=== PATIENT | male | born 1935 | race Caucasian/White ===

== ENCOUNTER 2016-09-30 12:07 | Inpatient (IN) | payer OTHER ==
[~2016-09-30] VITALS: Ht 180.3 cm; Wt 77.2 kg
[2016-09-30 12:54] LABS: Basophils # (auto) 0 uL; Basophils % (auto) 0.2 % (0.0-2.0); CONDITION Y; Eosinophils # (auto) 0.3 uL; Eosinophils % (auto) 3.9 % (0.0-7.0); Hematocrit 42.8 % (41.0-53.0); Hemoglobin 14.4 g/dL (13.5-17.5); Lymphocytes # (auto) 1.3 uL; Lymphocytes % (auto) 16.5 % (10.0-50.0); Mean Corpuscular Hgb Conc. 33.8 g/dL (32.0-36.0); Mean Corpuscular Volume 97.8 fL (80.0-100.0); Mean Platelet Volume 7.9 fL (7.4-10.4); Monocytes # (auto) 0.8 uL; Monocytes % (auto) 9.7 % (0.0-12.0); Neutrophils # (auto) 5.6 uL; Neutrophils % (auto) 69.7 % (37.0-80.0); Platelet Count (auto) 272 10^3/uL (140-450); Red Cell Distribution Width 14.6 % (11.6-16.0); White Blood Cell 8.1 10^3/uL (4.4-10.8)
[2016-09-30 13:06] LABS: Albumin 3.7 g/dL (3.4-5.0); BUN/Creatinine Ratio 25.4; Calcium 8.6 mg/dL (8.5-10.1); Potassium 4.4 mmol/L (3.5-5.1)
[2016-09-30] MEDS ORDERED: SODIUM CHLORIDE 0.9% 1,000 ML IV ONE (13:11)
[2016-09-30 13:23] LABS: Bilirubin, Total 0.8 mg/dL (0.2-1.0); Total Protein 7.3 g/dL (6.4-8.2)
[2016-09-30] MEDS ORDERED: NITROGLYCERIN 0.4 MG SL TAB SL PRN (14:00)
[2016-09-30] MEDS ORDERED: MORPHINE SULF INJ 2 MG/ML SYRINGE 1ML IV PRN ×2 (14:00)
[2016-09-30] MEDS ORDERED: HYDROcodone-ACET 5/325MG TAB PO PRN (14:00)
[2016-09-30] MEDS ORDERED: TEMAZEPAM 15 MG CAP PO PRN (14:00)
[2016-09-30] MEDS ORDERED: LORazepam 0.5 MG TAB PO PRN (14:00)
[2016-09-30] MEDS ORDERED: PROMETHAZINE HCL 25 MG/ML 1ML IV PRN (14:00)
[2016-09-30] MEDS ORDERED: LACTULOSE 20Gm/30ML SOLN PO PRN (14:00)
[2016-09-30] MEDS ORDERED: ACETAMINOPHEN 500 MG TAB PO PRN (14:00)
[2016-09-30] MEDS: SODIUM CHLORIDE 0.9% 1,000 ML IV SCH (15:05)
[2016-09-30] MEDS ORDERED: APIXABAN 2.5 MG TAB PO SCH (22:00)
[2016-09-30] MEDS ORDERED: ATORVASTATIN 20 MG TAB PO SCH (22:00)
[2016-09-30] MEDS: METOPROLOL TARTRATE 25 MG TAB PO SCH (22:17)
[2016-10-01] MEDS: SODIUM CHLORIDE 0.9% 1,000 ML IV SCH ×2 (02:33→14:58)
[2016-10-01] MEDS ORDERED: ASPirin 81 mg TAB PO SCH (10:00)
[2016-10-01] MEDS ORDERED: ADENOSINE 65 MG in GIVE UN-DILUTED 0 ML IV ONE (10:00)
[2016-10-01] MEDS ORDERED: PANTOPRAZOLE 40 MG TAB PO SCH (10:00)
[2016-10-01] MEDS ORDERED: ENOXAPARIN SOD 40 MG/0.4 ML SYRINGE SC SCH (10:00)
[2016-10-01] MEDS ORDERED: APIXABAN 5 MG TAB PO SCH (10:00)
[2016-10-01] MEDS ORDERED: APIXABAN 2.5 MG TAB PO SCH (10:00)
[2016-10-01] MEDS ORDERED: ALBUTEROL SULF 2.5 MG/0.5ML(0.5%) NEB SOLN ONE (10:18)
[2016-10-01] MEDS ORDERED: IPRATROPIUM BROM 0.5 MG/2.5ML INH SOL ONE (10:18)
[2016-10-01] MEDS ORDERED: HYDROCORTISONE SOD SUCC 100 MG/2ML INJ VIAL ONE (10:33)
[2016-10-01 12:46] VITALS: BP 155/92
[2016-10-01] MEDS: METOPROLOL TARTRATE 25 MG TAB PO SCH (14:57)
[2016-10-01 15:00] VITALS: BP 155/92
[2016-10-01 18:10] VITALS: BP 155/92
[2016-10-04 13:06] LABS: Temperature: 22.4 C (20.0-25.0)
== END 2016-10-01 20:15 | disposition home or self-care (01) | DRG 69 ==
LOC: ER 12:07 → TELE 12:08 → TELE-E-ADS 10-01 12:09 → TELE-CENTR 10-01 14:38
PROVIDERS: ADMIT Internal Medicine; ATTEND Internal Medicine Geriatric Medicine
DX: G45.9 Transient cerebral ischemic attack, unspecified (principal); J98.11 Atelectasis; G40.89 Other seizures; I48.91 Unspecified atrial fibrillation; F17.210 Nicotine dependence, cigarettes, uncomplicated; I27.2 Other secondary pulmonary hypertension; I35.8 Other nonrheumatic aortic valve disorders; I11.9 Hypertensive heart disease without heart failure; I70.0 Atherosclerosis of aorta; I49.3 Ventricular premature depolarization; J44.9 Chronic obstructive pulmonary disease, unspecified; Z79.01 Long term (current) use of anticoagulants; I25.2 Old myocardial infarction; Z79.899 Other long term (current) drug therapy; Z86.73 Personal history of transient ischemic attack (TIA), and cerebral infarction without residual deficits
CPT/HCPCS: 36415; 70450; 70551; 71010; 78452; 80053; 82550; 82607; 82746; 83735; 84443; 84484; 85025; 85652; 86141; 93005; 93017; 93306; 93886; 94640; 94761; 96360; 96361; J0153

== ENCOUNTER 2017-12-06 16:23 | Inpatient (IN) | payer OTHER ==
[~2017-12-06] VITALS: Ht 170.2 cm; Wt 67.0 kg
[2017-12-06 18:05] LABS: Basophils # (auto) 0 uL; Basophils % (auto) 0.1 % (0.0-2.0); Eosinophils # (auto) 0 uL; Hematocrit 25.1 % (41.0-53.0); Hemoglobin 8.5 g/dL (13.5-17.5); Lymphocytes # (auto) 0.3 uL; Lymphocytes % (auto) 1.6 % (10.0-50.0); Mean Corpuscular Hemoglobin 30.1 pg (28.0-32.0); Mean Corpuscular Hgb Conc. 33.9 g/dL (32.0-36.0); Mean Corpuscular Volume 88.5 fL (80.0-100.0); Monocytes # (auto) 1.3 uL; Monocytes % (auto) 6.1 % (0.0-12.0); Neutrophils # (auto) 20.2 uL; Neutrophils % (auto) 92.2 % (37.0-80.0); Platelet Count (auto) 345 10^3/uL (140-450); Red Blood Cells 2.83 10^6/uL (4.5-5.90)
[2017-12-06 18:28] LABS: Albumin 2.1 g/dL (3.4-5.0); Magnesium 1.8 mg/dL (1.6-2.6); Potassium 4.1 mmol/L (3.5-5.1)
[2017-12-06 18:31] LABS: BUN/Creatinine Ratio 27.5; Calcium 7.4 mg/dL (8.5-10.1)
[2017-12-06 18:35] LABS: Bilirubin, Total 0.7 mg/dL (0.2-1.0); Total Protein 5.8 g/dL (6.4-8.2)
[2017-12-06] MEDS ORDERED: DIGOXIN (250MCG/ML) 2 ML AMPULE IV ONE (19:15)
[2017-12-06] MEDS ORDERED: SODIUM CHLORIDE 0.9% 500 ML IV ONE (19:15)
[2017-12-06] MEDS ORDERED: cefTRIAXone 1GM/10ml IVPUSH 10 ML IV ONE (19:30)
[2017-12-06 20:07] LABS: INR 1.18 (0.9-1.15); Partial Thromboplastin Time 29.1 sec (23.78-33.04); Prothrombin Time 12.5 sec (9.27-12.13)
[2017-12-06] MEDS ORDERED: ALBUMIN 25% 100 ML IV ONE (23:45)
[2017-12-06] MEDS ORDERED: ONDANSETRON HCL 4 MG/2 ML VIAL IV PRN (23:45)
[2017-12-06] MEDS ORDERED: FUROSEMIDE 20 MG/2 ML VIAL IV ONE (23:45)
[2017-12-07] MEDS ORDERED: VANCOMYCIN PER PHARMACY 0 MG IV SCH
[2017-12-07] MEDS: ENOXAPARIN SOD 80 MG/0.8ML SYRINGE SC SCH ×2 (01:00→10:25)
[2017-12-07] MEDS ORDERED: VANCOMYCIN 1GM/250ML 250 ML IV ONE (01:30)
[2017-12-07 02:00] VITALS: BP 104/63
[2017-12-07 04:22] LABS: Urine Bacteria NONE SEEN /hpf (None Seen); Urine Blood 2+ /uL (Negative); Urine Mucus FEW (None Seen); Urine WBC 7 /hpf (0 - 3)
[2017-12-07 05:00] VITALS: BP 100/54
[2017-12-07] MEDS: PIPERACILLIN-TAZOB 3.375GM 100 ML IV SCH ×4 (06:00→18:00)
[2017-12-07 07:02] LABS: Basophils # (auto) 0 uL; Basophils % (auto) 0.2 % (0.0-2.0); Eosinophils # (auto) 0 uL; Eosinophils % (auto) 0.1 % (0.0-7.0); Hematocrit 24.8 % (41.0-53.0); Hemoglobin 8.5 g/dL (13.5-17.5); Lymphocytes # (auto) 0.5 uL; Lymphocytes % (auto) 2.1 % (10.0-50.0); Mean Corpuscular Hemoglobin 30.2 pg (28.0-32.0); Mean Corpuscular Hgb Conc. 34.2 g/dL (32.0-36.0); Mean Corpuscular Volume 88.2 fL (80.0-100.0); Monocytes # (auto) 1.1 uL; Neutrophils % (auto) 92.6 % (37.0-80.0); Platelet Count (auto) 320 10^3/uL (140-450); Red Blood Cells 2.81 10^6/uL (4.5-5.90); Red Cell Distribution Width 13.7 % (11.8-14.3); White Blood Cell 22.7 10^3/uL (4.4-10.8)
[2017-12-07 07:14] LABS: Albumin 2.1 g/dL (3.4-5.0); BUN/Creatinine Ratio 29.8; Calcium 7.3 mg/dL (8.5-10.1); Potassium 3.6 mmol/L (3.5-5.1)
[2017-12-07 07:19] LABS: Bilirubin, Total 0.7 mg/dL (0.2-1.0); Total Protein 5.5 g/dL (6.4-8.2)
[2017-12-07 09:00] VITALS: BP 108/63
[2017-12-07] MEDS ORDERED: ASPirin-EC 81 mg tab PO SCH (10:00)
[2017-12-07] MEDS ORDERED: METOPROLOL SUCCINATE XL 50 MG TAB PO SCH (10:00)
[2017-12-07] MEDS: MAGNESIUM SULFATE 1GM/100ML 100 ML IV SCH ×2 (12:00→13:29)
[2017-12-07] MEDS ORDERED: POTASSIUM CHL 10% (20 MEQ/15ML) 15ml ORAL SOLN PO ONE (12:00)
[2017-12-07] MEDS ORDERED: THIAMINE HCL 100 MG TAB PO SCH (12:15)
[2017-12-07] MEDS ORDERED: LORazepam 0.5 MG TAB PO PRN (12:15)
[2017-12-07] MEDS ORDERED: FOLIC ACID 1 MG TAB PO ONE (12:15)
[2017-12-07 13:00] VITALS: BP 106/60
[2017-12-07] MEDS ORDERED: POTASSIUM CHL 10 Meq TABLET PO ONE (13:00)
[2017-12-07 15:15] VITALS: BP 106/60
[2017-12-07 16:49] VITALS: BP 94/61
[2017-12-07] MEDS ORDERED: ATORVASTATIN 20 MG TAB PO SCH (22:00)
== END 2017-12-07 20:20 | disposition short-term general hospital (02) | DRG 871 ==
LOC: ER 16:23 → EDBD 16:23 → TELE 16:24 → TELE-WESTW 12-07 01:04
PROVIDERS: ADMIT Nurse Practitioner Family; ATTEND Family Medicine
DX: A40.1 Sepsis due to streptococcus, group B (principal); I50.33 Acute on chronic diastolic (congestive) heart failure; E87.1 Hypo-osmolality and hyponatremia; E44.0 Moderate protein-calorie malnutrition; D50.9 Iron deficiency anemia, unspecified; E83.42 Hypomagnesemia; E87.6 Hypokalemia; F17.200 Nicotine dependence, unspecified, uncomplicated; F32.9 Major depressive disorder, single episode, unspecified; F41.9 Anxiety disorder, unspecified; I11.0 Hypertensive heart disease with heart failure; I25.10 Atherosclerotic heart disease of native coronary artery without angina pectoris; I48.0 Paroxysmal atrial fibrillation; J44.9 Chronic obstructive pulmonary disease, unspecified; R29.6 Repeated falls; I25.2 Old myocardial infarction; Z82.49 Family history of ischemic heart disease and other diseases of the circulatory system; Z83.3 Family history of diabetes mellitus; Z86.73 Personal history of transient ischemic attack (TIA), and cerebral infarction without residual deficits
CPT/HCPCS: 36415; 51702; 70450; 71045; 80053; 81001; 83605; 83735; 83880; 84443; 84484; 85025; 85610; 85730; 87040; 87077; 87086; 87186; 93005; 93306; 94761; 96361; 96365; 96375; J0696; J2543; P9047

== ENCOUNTER 2017-12-25 13:43 | Emergency (ER) | payer OTHER ==
[~2017-12-25] VITALS: Ht 182.9 cm; Wt 68.0 kg
[~2017-12-25 13:43] MED LIST: EPINEPHrine HCL 1 MG/10 ML SYRG IV ONE; SODIUM BICARBONATE 8.4% INJ 50ML SYRINGE IV ONE
[2017-12-25 14:00] VITALS: BP 44/19
[2017-12-25] MEDS ORDERED: NOREPINEPHRINE 8 MG/250ML KIT 250 ML IV ONE (14:04)
[2017-12-25] MEDS ORDERED: SODIUM BICARBONATE 8.4 % INJ 50ML VIAL IV ONE ×2 (14:27→14:45)
[2017-12-25 14:37] LABS: Basophils # (auto) 0 uL; Basophils % (auto) 0.2 % (0.0-2.0); Eosinophils # (auto) 0 uL; Eosinophils % (auto) 0.2 % (0.0-7.0); Hematocrit 25.2 % (41.0-53.0); Hemoglobin 7.9 g/dL (13.5-17.5); Lymphocytes % (auto) 25.2 % (10.0-50.0); Mean Corpuscular Hgb Conc. 31.1 g/dL (32.0-36.0); Mean Corpuscular Volume 96.2 fL (80.0-100.0); Monocytes # (auto) 0.6 uL; Monocytes % (auto) 8.1 % (0.0-12.0); Neutrophils # (auto) 5.2 uL; Neutrophils % (auto) 66.3 % (37.0-80.0); Nucleated Red Blood Cells % 0.2 %; Platelet Count (auto) 234 10^3/uL (140-450); Red Blood Cells 2.62 10^6/uL (4.5-5.90); Red Cell Distribution Width 15.4 % (11.8-14.3); White Blood Cell 7.9 10^3/uL (4.4-10.8)
[2017-12-25 14:38] LABS: Albumin 1.3 g/dL (3.4-5.0); BUN/Creatinine Ratio 29.2; Calcium 7.2 mg/dL (8.5-10.1); Potassium 3.8 mmol/L (3.5-5.1)
[2017-12-25 14:40] LABS: Lactic Acid w/Reflex 10.4 mmol/L (0.4-2.0)
[2017-12-25 14:43] LABS: Bilirubin, Total 0.3 mg/dL (0.2-1.0); Total Protein 4.4 g/dL (6.4-8.2)
[2017-12-25] MEDS ORDERED: NOREPINEPHRINE 8 MG/250ML KIT 250 ML IV SCH (15:30)
== END 2017-12-25 16:59 | disposition expired ==
LOC: ER 13:43 → EDBD 13:43 → ER 16:59
DX: I46.9 Cardiac arrest, cause unspecified (principal); J44.9 Chronic obstructive pulmonary disease, unspecified; I10 Essential (primary) hypertension; I25.2 Old myocardial infarction
CPT/HCPCS: 36415; 36600; 71045; 80053; 82805; 82962; 83605; 84484; 85025; 87040; 87077; 87186; 92950; 99285; J0171; J7030; 93005; 94002